=== PATIENT | female | born 1955 | race Caucasian/White ===

== ENCOUNTER 2024-07-05 07:46 | Inpatient (IN) ==
--- NOTE | 2024-05-27 15:31 | PAT Medication Instructions ---
Medication Instructions Date of Service May 27, 2024 Home Medications albuterol 90 mcg/actuation aerosol inhaler 90 mcg inhalation DAILY PRN beclomethasone dipropionate 40 mcg/actuation aerosol inhaler 40 mcg inhalation DAILY calcium 600 mg capsule 600 mg PO DAILY cholecalciferol (vitamin D3) 50 mcg (2,000 unit) capsule (Vitamin D3) 100 mcg PO DAILY diphenhydramine 25 mg-acetaminophen 500 mg tablet (Tylenol PM Extra Strength) 1 tab PO HS fluticasone propionate 50 mcg/actuation nasal spray,suspension (Flonase Allergy Relief) 1 spray intranasal DAILY levocetirizine 5 mg tablet (Xyzal) 5 mg PO QAM montelukast 10 mg tablet 10 mg PO QAM wzsxspuf-yyk-gjhm-FA-Ca carb-vit K 18 mg iron-400 mcg-500 mg tablet 1 tab PO DAILY naproxen 500 mg tablet (Naprosyn) 500 mg PO BID omeprazole 20 mg capsule,delayed release 20 mg PO BID quetiapine 50 mg tablet (Seroquel) 50 mg PO HS rosuvastatin 10 mg tablet 10 mg PO QAM semaglutide 1 mg/dose (4 mg/3 mL) subcutaneous pen injector (Ozempic) 1 mg subcut WK valsartan 160 mg-hydrochlorothiazide 25 mg tablet 1 tab PO QAM vitamins A,C,W-powh-figntg 2,148 mcg-113 mg-45 mg-17.4 mg tablet (PreserVision AREDS) 1 tab PO DAILY STOP 7 days before surgery semaglutide 1 mg/dose (4 mg/3 mL) subcutaneous pen injector (Ozempic) 1 mg subcut WK Continue as directed albuterol 90 mcg/actuation aerosol inhaler 90 mcg inhalation DAILY PRN(use if needed; please bring with you to hospital day of surgery if possible) beclomethasone dipropionate 40 mcg/actuation aerosol inhaler 40 mcg inhalation DAILY fluticasone propionate 50 mcg/actuation nasal spray,suspension (Flonase Allergy Relief) 1 spray intranasal DAILY ASK your surgeon for instructions naproxen 500 mg tablet (Naprosyn) 500 mg PO BID STOP taking 2 weeks before surgery (or as soon as possible if surgery is within 2 weeks) kqleubak-mdx-icwg-FA-Ca carb-vit K 18 mg iron-400 mcg-500 mg tablet 1 tab PO DAILY vitamins A,C,D-fedt-kxnoxp 2,148 mcg-113 mg-45 mg-17.4 mg tablet (PreserVision AREDS) 1 tab PO DAILY DO NOT take the morning of surgery calcium 600 mg capsule 600 mg PO DAILY cholecalciferol (vitamin D3) 50 mcg (2,000 unit) capsule (Vitamin D3) 100 mcg PO DAILY levocetirizine 5 mg tablet (Xyzal) 5 mg PO QAM valsartan 160 mg-hydrochlorothiazide 25 mg tablet 1 tab PO QAM Take morning of surgery With a small sip of water, OTHERWISE NOTHING TO EAT OR DRINK AFTER MIDNIGHT: montelukast 10 mg tablet 10 mg PO QAM omeprazole 20 mg capsule,delayed release 20 mg PO BID rosuvastatin 10 mg tablet 10 mg PO QAM Take evening before surgery diphenhydramine 25 mg-acetaminophen 500 mg tablet (Tylenol PM Extra Strength) 1 tab PO HS omeprazole 20 mg capsule,delayed release 20 mg PO BID quetiapine 50 mg tablet (Seroquel) 50 mg PO HS Other Notes If you have any questions please call us at [phone] or [phone] or [phone] or [phone]
--- NOTE | 2024-06-10 10:37 | Anesthesiology Consultation ---
Date of Service June 10, 2024 Assessment & Plan (1) Encounter for pre-operative examination: Plan - check BSG am DOS. - awaiting surgeon ordered medical clearance, Dr. Gretchen Heath 06/14/24. Optimization form to be faxed to PCP regarding cough as patient states was also present at time of her hysterectomy and was told "coughed multiple times under anesthesia, but no complications happened." - semaglutide instructions: Patient informed at PAT visit to stop 7 days prior to surgery- voiced understanding. Patient advised to check with prescriber to see if alternative diabetic management changes recommended while holding semaglutide- if so, patient to call back to [facility] to update chart and discuss if any further preop medication instructions needed. Chart Review Chart Review: Pending: Refer to Additional Notes / Consult section and Patient seen in Pre Admission Testing Teaching & Discussion Pre-Anesthesia Teaching/Discussion Notes: Instructed NPO after midnight before surgery, except medications with 15 cc of water. Medication instructions provided according to the [facility] guidelines. History Surgery Operation Date: 07/05/24 09:35 Proposed Procedures p L1-L4 Decompression and Fusion, Possible L4-L5, with Spinal Cord Monitoring - Nasim Elizabeth, Height/Weight Height: 5 ft 3 in Weight: 118.5 kg Allergies Allergy/AdvReac Type Severity Reaction Status Date / Time lisinopril AdvReac Intermediate Cough Verified 05/27/24 09:11 Medications Home Medications Medication Instructions Recorded Confirmed Last Taken albuterol 90 mcg/actuation aerosol 90 mcg inhalation DAILY PRN 05/27/24 05/27/24 Unknown inhaler Shortness of Breath - Wheezing beclomethasone dipropionate 40 40 mcg inhalation DAILY 05/27/24 05/27/24 Unknown mcg/actuation aerosol inhaler calcium 600 mg capsule 600 mg PO DAILY 05/27/24 05/27/24 Unknown cholecalciferol (vitamin D3) 50 100 mcg PO DAILY 05/27/24 05/27/24 Unknown mcg (2,000 unit) capsule (Vitamin D3) diphenhydramine 25 1 tab PO HS 05/27/24 05/27/24 Unknown mg-acetaminophen 500 mg tablet (Tylenol PM Extra Strength) fluticasone propionate 50 1 spray intranasal DAILY 05/27/24 05/27/24 Unknown mcg/actuation nasal spray,suspension (Flonase Allergy Relief) levocetirizine 5 mg tablet (Xyzal) 5 mg PO QAM 05/27/24 05/27/24 Unknown montelukast 10 mg tablet 10 mg PO QAM 05/27/24 05/27/24 Unknown gzxmcvqj-ysk-zcou-FA-Ca carb-vit K 1 tab PO DAILY 05/27/24 05/27/24 Unknown 18 mg iron-400 mcg-500 mg tablet naproxen 500 mg tablet (Naprosyn) 500 mg PO BID 05/27/24 05/27/24 Unknown omeprazole 20 mg capsule,delayed 20 mg PO BID 05/27/24 05/27/24 Unknown release quetiapine 50 mg tablet (Seroquel) 50 mg PO HS 05/27/24 05/27/24 Unknown rosuvastatin 10 mg tablet 10 mg PO QAM 05/27/24 05/27/24 Unknown semaglutide 1 mg/dose (4 mg/3 mL) 1 mg subcut WK 05/27/24 05/27/24 Unknown subcutaneous pen injector (Ozempic) valsartan 160 1 tab PO QAM 05/27/24 05/27/24 Unknown mg-hydrochlorothiazide 25 mg tablet vitamins A,C,F-tpzf-poymaj 2,148 1 tab PO DAILY 05/27/24 05/27/24 Unknown mcg-113 mg-45 mg-17.4 mg tablet (PreserVision AREDS) Past Medical History Medical History (Updated 06/10/24 @ 11:01 by Jazmyn Tom PA-C) Asthma controlled, stable per pt; last albuterol inhaler use last month Chronic cough "Every year between March-August I get a dry cough." pt denies any other symptoms Degenerative disc disease, lumbar Heart burn controlled, stable per pt History of adverse reaction to anesthesia "with my hysterectomy my nose got really itchy." denies rash or swelling Hypertension controlled, stable per pt Numbness and tingling of both lower extremities Prediabetes Sleep apnea CPAP-compliant Spinal stenosis Patient denies h/o stroke, seizures, heart attack, heart failure, blood clots/DVTs or blood transfusions. Exercise / Class Metabolic Activity II 4-5 Yardwork/Stairs/Walk up hill (occasional shortness of breath with one flight of stairs-attributed to correlation with increased back pain/asthma ongoing x 1 year per patient-denies change or worsening; denies chest discomfort) Past Surgical History Surgical History History of tonsillectomy and adenoidectomy Hx of appendectomy Hx of colonoscopy Hx of hysterectomy Hx of wisdom tooth extraction Past Anesthesia History No Family Hx of Anesthesia Complications History of PONV No Hx of PONV and No Hx of Motion Sickness Social History Smoking Status: Never smoker Do You Dip or Chew Tobacco: No Hx Alcohol Use: No Hx Substance Use: No substance use type: does not use Review of Systems Patient denies chest pain, reflux, fever, chills, wheezing, or palpitations. Physical Exam Vital Signs Vitals BP 131/82 P 70 TEMP 97.8 SP02 95% on RA RESP 18 Physical Patient resting comfortably in chair in no acute distress, alert and oriented, responding appropriately throughout visit Full cervical extension range of motion without pain TMD <3 finger breadths Mallampati Score 3 Dentition: several crowns, denies chipped or loose teeth, caps, implants or bridges Lungs: normal respiratory effort. Good air movement, clear throughout to auscultation, no adventitious breath sounds Cardiac: regular rate and rhythm, no murmurs noted Carotid arteries: negative bruit bilat Lab Results Anesthesia Preop Results Results Anesthesia Widget: WBC 7.87 K/ul (4.8-10.8) 06/10/24 Hgb 11.8 g/dl (12.0-16.0) L 06/10/24 Hct 36.2 % (37.0-47.0) L 06/10/24 Plt 181 K/uL (130-400) 06/10/24 Na 143 mmol/L (136-145) 06/10/24 K 4.7 mmol/L (3.5-5.1) 06/10/24 Cl 108 mmol/L (98-107) H 06/10/24 CO2 29 mmol/L (21-32) 06/10/24 BUN 29 mg/dl (6-23) H 06/10/24 Creat 1.07 mg/dl (0.6-1.2) 06/10/24 Glucose Level 138 mg/dl (70-99(Fasting)) H 06/10/24 PT 10.6 Seconds (9.0-12.0) 06/10/24 PTT 26 Seconds (21-31) 06/10/24 INR 1.0 (0.9-1.1) 06/10/24 HA1c 6.4 % (4.5-5.6) H 06/10/24 Urine Color Yellow 06/10/24 Urine Appearance Clear (Clear) 06/10/24 Urine pH 5.5 (4.5-7.5) 06/10/24 Urine Specific [place] 1.008 (1.000-1.030) 06/10/24 Urine Protein Negative (Negative) 06/10/24 Urine Glucose (UA) Negative (Negative) 06/10/24 Urine Ketones Negative (Negative) 06/10/24 Urine Blood Negative (Negative) 06/10/24 Urine Nitrite Negative (Negative) 06/10/24 Urine Bilirubin Negative (Negative) 06/10/24 Urine Urobilinogen Negative (Negative) 06/10/24 Urine Leukocyte Esterase Trace (Negative) H 06/10/24 Urine WBC (Auto) 0-5 /hpf (0-5) 06/10/24 Urine RBC (Auto) 0-2 /hpf (0-2) 06/10/24 Urine Hyaline Casts (Auto) 0-2 /lpf (0-2) 06/10/24 Urine Epithelial Cells (Auto) 0-2 /hpf (0-2) 06/10/24 Urine Bacteria (Auto) None Seen (None Seen) 06/10/24 Blood Type A Positive 06/10/24 Antibody Screen NEGATIVE 06/10/24 Testing Electrocardiogram Date: 04/15/24 Sinus rhythm, rate 65 bpm Chest X-Ray Date: 06/10/24 No acute chest disease.
[2024-07-05] MEDS: CeleBREX 200 MG CAP PO SCH (08:48)
[2024-07-05] MEDS: LR 60ML/HR IV SCH (08:48)
[2024-07-05] MEDS: LR 15ML/HR IV SCH (08:48)
[2024-07-05] MEDS: GABAPENTIN 300 MG CAP PO SCH (08:48)
[2024-07-05] MEDS: ACETAMINOPHEN 500 MG TAB PO SCH (08:48)
--- NOTE | 2024-07-05 09:26 | History & Physical Bridge Note ---
Date of Service July 05, 2024 History & Physical Bridge Note I have examined the patient, reviewed the History & Physical and in the interval since the performance of the History & Physical I have noted the following changes of clinical significance: no changes noted
[2024-07-05] MEDS ORDERED: ONDANSETRON INJ 2 MG/ML 2 ML VIAL IV PRN (09:27)
[2024-07-05] MEDS ORDERED: ATROPINE SULFATE 0.1 MG/ML 10ML SYR IV PRN (09:27)
[2024-07-05] MEDS ORDERED: PROMETHAZINE HCL 6.25 MG in SODIUM CHLORIDE 0.9% 50 ML IV PRN (09:27)
[2024-07-05] MEDS ORDERED: HYDROmorphone INJ 1 MG/ML SYRINGE IV PRN (09:27)
--- NOTE | 2024-07-05 09:28 | History & Physical Report ---
Date of Service July 05, 2024 Assessment & Plan (1) Lumbosacral spondylosis with radiculopathy: Plan: L1-L4 decompression and fusion, possible L4-L5. History of Present Illness Chief Complaint: Back and leg pain Primary Care Provider: Gretchen Heath DO This is a 68-year-old female who presents with chronic persistent back and bilateral leg pain and failing course of nonoperative care is here for surgical invention. Allergies Allergy/AdvReac Type Severity Reaction Status Date / Time lisinopril AdvReac Intermediate Cough Verified 07/05/24 08:25 Home Medications Medication Instructions Recorded Confirmed Type albuterol 90 mcg/actuation aerosol 90 mcg inhalation DAILY PRN 05/27/24 07/05/24 History inhaler Shortness of Breath - Wheezing beclomethasone dipropionate 40 40 mcg inhalation DAILY 05/27/24 07/05/24 History mcg/actuation aerosol inhaler calcium 600 mg capsule 600 mg PO DAILY 05/27/24 07/05/24 History cholecalciferol (vitamin D3) 50 100 mcg PO DAILY 05/27/24 07/05/24 History mcg (2,000 unit) capsule (Vitamin D3) diphenhydramine 25 1 tab PO HS 05/27/24 07/05/24 History mg-acetaminophen 500 mg tablet (Tylenol PM Extra Strength) fluticasone propionate 50 1 spray intranasal DAILY 05/27/24 07/05/24 History mcg/actuation nasal spray,suspension (Flonase Allergy Relief) levocetirizine 5 mg tablet (Xyzal) 5 mg PO QAM 05/27/24 07/05/24 History montelukast 10 mg tablet 10 mg PO QAM 05/27/24 07/05/24 History elotnrxy-mqt-mswj-FA-Ca carb-vit K 1 tab PO DAILY 05/27/24 07/05/24 History 18 mg iron-400 mcg-500 mg tablet naproxen 500 mg tablet (Naprosyn) 500 mg PO BID 05/27/24 07/05/24 History omeprazole 20 mg capsule,delayed 20 mg PO BID 05/27/24 07/05/24 History release quetiapine 50 mg tablet (Seroquel) 50 mg PO HS 05/27/24 07/05/24 History rosuvastatin 10 mg tablet 10 mg PO QAM 05/27/24 07/05/24 History semaglutide 1 mg/dose (4 mg/3 mL) 1 mg subcut WK 05/27/24 07/05/24 History subcutaneous pen injector (Ozempic) valsartan 160 1 tab PO QAM 05/27/24 07/05/24 History mg-hydrochlorothiazide 25 mg tablet vitamins A,C,L-pzol-zexbsd 2,148 1 tab PO DAILY 05/27/24 07/05/24 History mcg-113 mg-45 mg-17.4 mg tablet (PreserVision AREDS) Past Med/Surg History Problem List (Updated 07/05/24 @ 09:27 by Nasim Elizabeth DO) Lumbosacral spondylosis with radiculopathy Medical History (Updated 07/05/24 @ 09:27 by Nasim Elizabeth DO) History of adverse reaction to anesthesia "with my hysterectomy my nose got really itchy." denies rash or swelling Numbness and tingling of both lower extremities Degenerative disc disease, lumbar Spinal stenosis Heart burn controlled, stable per pt Prediabetes Hypertension controlled, stable per pt Chronic cough "Every year between March-August I get a dry cough." pt denies any other symptoms Sleep apnea CPAP-compliant Asthma controlled, stable per pt; last albuterol inhaler use last month Surgical History Hx of wisdom tooth extraction History of tonsillectomy and adenoidectomy Hx of hysterectomy Hx of appendectomy Hx of colonoscopy Social History Smoking Status: Never smoker Second Hand Exposure: No; Do You Dip or Chew Tobacco: No; Tobacco Cessation Education Requested by Patient: No Hx Alcohol Use: No Hx Substance Use: No Preferred Language: Azeri Communication Ability: Effective Lpn Per Diem Required: No Beliefs That Will Affect Care: None Current Living Situation: Spouse Other Information That Helps Us Care for You: No Feels Safe at Home: Yes Safety Concerns: Feels Safe At This Time Assistive Devices: CPAP, Glasses and Other Assistive Devices Comment: x2 crowns Physical Exam Physical Exam: Patient is alert and oriented Heart regular rhythm lungs clear Results & Data Results & Data Vital Signs (Past 12 Hours) Vital Signs Temp Pulse Resp BP Pulse Ox O2 Del Method 07/05/24 08:34 36.7 C 95 H 20 130/88 92 Room Air
[2024-07-05] MEDS ORDERED: MIDAZOLAM HCL 1 MG/ML 2ML VIAL ONE (09:39)
[2024-07-05] MEDS ORDERED: fentaNYL citrate PF 100 MCG/2 ML VIAL ONE (09:39)
[2024-07-05] MEDS ORDERED: HYDROmorphone INJ 2 MG/ML SYR/VIAL ONE (09:40)
[2024-07-05] MEDS: ceFAZolin 2000MG 2,000 MG/15 ML SYR IV SCH ×2 (09:50→18:35)
[2024-07-05] MEDS ORDERED: DEXAMETHASONE SOD INJ 4 MG/ML VIAL ONE (10:08)
[2024-07-05] MEDS ORDERED: ONDANSETRON INJ 2 MG/ML 2 ML VIAL ONE (10:08)
[2024-07-05] MEDS: BUPIVACAINE/EPINEPHRINE 0.25% 1:200,000 30 ML VIAL ONE (10:41)
[2024-07-05] MEDS: ceFAZolin 330 MG/ML 1 GM VIAL ONE (10:41)
[2024-07-05] MEDS ORDERED: LIDOCAINE 2% 2 ML VIAL/AMP(20MG/ML) INFIL ONE (11:34)
[2024-07-05] MEDS ORDERED: ROCURONIUM BROMIDE 10 MG/ML 5 ML VIAL IV ONE (11:34)
[2024-07-05] MEDS ORDERED: PROPOFOL IV EMULSION 10 MG/ML 20 ML VIAL IV ONE (11:34)
[2024-07-05] MEDS ORDERED: ALBUMIN HUMAN 5% 12.5 GM/250 ML VIAL IV ONE (12:09)
[2024-07-05] MEDS ORDERED: GLYCOPYRROLATE 0.2 MG/ML VIAL ONE (12:28)
[2024-07-05] MEDS: FLOSEAL HEMOSTATIC MATRIX 10ML TOP ONE (12:28)
[2024-07-05] MEDS ORDERED: KETAMINE HCL 10MG/ML SYR ONE (12:28)
[2024-07-05 12:30] LABS: Hematocrit (blood only) 29.8 % (37.0-47.0); Hemoglobin 10.1 g/dl (12.0-16.0)
[2024-07-05] MEDS ORDERED: SUGAMMADEX SODIUM 200 MG/2 ML VIAL IV ONE (12:33)
--- NOTE | 2024-07-05 12:49 | Operative Report ---
Post Operative Report Pre & Post Diagnosis Operation Date: 07/05/24 09:35 Pre-Op Diagnosis: #1 lumbosacral spondylosis with radiculopathy #2 lumbar spinal stenosis with neurogenic claudication #3 lumbar degenerative scoliosis #4 morbid obesity Post-Op Diagnosis: Same I identified the patient and participated in the time-out.: Yes Procedure Operation Date: 07/05/24 09:35 Actual Procedures #1 lumbar decompression with bilateral medial facetectomies and foraminotomies L1-L2, L2-L3, L3-L4 and L4-5 per #2 posterior spinal fusion L1-L5. #3 placement posterior segmental instrumentation L1-L5. #4 interbody fusion L2-L3, L3-L4 and L4-5. #5 placement Spira 10 x 26 mm at L2-L3, 11 x 26 mm at L3-L4 and 9 x 26 mm x 2 at L4-5. #6 placement locally harvested morselized autograft and posterior gutters. #7 placement of infuse collagen sponge combined with Koros in the posterior lateral gutters and os design bone graft interbody spaces. #8 application of versa wrap over the exposed dura. Surgeon Nasim Elizabeth, DO Engineering Manager Francia Kingston Estimated Blood Loss 950 Findings See Below The patient is 5 foot 3 weighing over 114 kg with a BMI in excess of 44. The patient's body habitus did contribute to significant technical difficulty with positioning exposure and the procedure itself. This had at least 50% increased operative time. I am recommending a modifier 22. Specimens None Indications This is a 68-year-old female presents above-mentioned diagnosis after failing since course of nonoperative care is here for surgical invention. Description of Procedure Patient was met with identified informed sent obtained. Patient was then taken to the operative suite underwent intubation placed in a prone position on the Jakob table atop the Matthew frame. All bony promises well-padded eyes inspected to ensure no external pressure placed upon the. This point the lumbar spine was prepped and draped in a sterile fashion. Sharp dissection with the assistance of Bovie cautery performed down to and exposing the lamina and transverse processes of L1-L2 L3-L4-L5 bilaterally. From caudal to cephalad fashion complete laminectomy of L4 was performed including bilateral male facetectomies and foraminotomies addressing severe spinal stenosis. Complete laminectomy of L3 was performed with bilateral medial facetectomies and foraminotomies addressing severe spinal stenosis. Last I then performed a complete laminectomy of L2 with bilateral medial facetectomies and foraminotomies and lastly laminectomy of L1 with bilateral medial facetectomies and foraminotomies addressing severe spinal stenosis. Pedicle screws then placed in L 1 through L5 bilaterally with assistance of fluoroscopy process sushma placed by way of transforaminal approach on the right a discectomy of L4-5 was performed endplates guided to subcortical bleeding bone and a 9 x 26 mm Spira cage filled with through the transforaminal approach and a second os design bone graft apposition. Then proceeded to the left transforaminal region at L4-5. Discectomy performed 9 x 26 mm Spira cage filled with os designed tapped into position. I then proceeded to L3-L4 by way of transforaminal approach on the left a complete discectomy was performed endplates guided to subcortical white bone and a 12 x 26 mm Spira cage filled with os designed tapped in position. Then proceeded L2-L3 and by way of transforaminal approach a complete discectomy performed endplates guided to subcortical the bone and 11 x 26 mm Spira cage filled with os design tapped in position. The rods were then locked in 5 position bilaterally but the transverse processes of L1-L2-L3 L4-5 burred to subcortical bleeding bone. Infuse collagen sponge combined with Koros and local autograft placed in the posterior lateral gutters. Versa wrap placed over the exposed dura. 15 round CARLOS drain inserted. The incision was then closed with 1 Vicryl fascia 2-0 Vicryl subcutaneously and 4 Monocryl for final skin closure. Steri-Strips sterile dressing placed. Patient waken taken to PACU stable condition. Please note spinal cord monitoring was utilized at the procedure no changes noted. Francia Kingston was present at the entire surgery involved patient positioning complex portion of the surgery and Final skin closure. I attest to the content of the Intraoperative Record and any orders documented therein. Any exceptions are noted below.
--- NOTE | 2024-07-05 12:58 | Fluoroscopy Report ---
FL lumbar spine 2-3V CLINICAL HISTORY: L1-L4 DECOMPRESSION AND FUSION POSSIBLE L4-L5 COMPARISON STUDY: None. FLUOROSCOPY TIME: 30 seconds. Ka,r: 29.13 mGy FLUOROSCOPIC IMAGES: 4 FINDINGS: Fluoroscopy was provided during posterior decompression with L2-L3, L3-L4 and L4-L5 discect ze with interbody spacer placement. Bilateral pedicle screws at the L1-L5 levels are present with in terconnecting rods. IMPRESSION: Fluoroscopy provided during L1-L5 decompression and fusion. ACT 112: Negative or not required by law. Electronically signed by: Osmel Miranda M.D. 07/05/2024 12:56 PM
--- NOTE | 2024-07-05 13:41 | Anesthesiology Progress Note ---
Date of Service July 05, 2024 Anesthesia Post Procedure Vital Signs Vital Signs: Temp Pulse Pulse Resp BP Pulse Ox O2 Del Method 07/05/24 13:30 83 17 118/77 97 Room Air 07/05/24 13:20 81 12 122/96 94 Room Air 07/05/24 13:10 85 18 119/74 100 Oxymask 07/05/24 13:00 91 H 20 125/95 100 Oxymask 07/05/24 12:59 36.2 C L 88 16 118/89 100 Oxymask 07/05/24 08:34 36.7 C 95 H 20 130/88 92 Room Air O2 Flow Rate 07/05/24 13:30 07/05/24 13:20 07/05/24 13:10 4 07/05/24 13:00 6 07/05/24 12:59 6 07/05/24 08:34 Transfer of Care Handoff Completed per policy Notes Mental Status: alert / awake / arousable Patient Amnestic to Procedure: Yes Nausea / Vomiting: adequately controlled Pain: adequately controlled Airway Patency, RR, SpO2: stable & adequate BP & HR: stable & adequate Hydration State: stable & adequate Anesthetic Complications: no major complications apparent
[2024-07-05] MEDS ORDERED: LORazepam 2 MG/1 ML VIAL IV PRN (14:25)
[2024-07-05] MEDS ORDERED: ACETAMINOPHEN 500 MG TAB PO PRN (14:25)
[2024-07-05] MEDS ORDERED: LORazepam 0.5 MG TAB PO PRN (14:25)
[2024-07-05] MEDS ORDERED: hydrOXYzine HCl 25 MG TAB PO PRN (14:25)
[2024-07-05] MEDS ORDERED: SOD PHOSPHATE/SOD BIPHOSPHATE ENEMA 132 ML BTL PR PRN (14:25)
[2024-07-05] MEDS ORDERED: ALUMINUM/MAGNESIUM SUSP 30 ML UDC PO PRN (14:25)
[2024-07-05] MEDS ORDERED: bisacodyL 10 MG SUPP PR PRN (14:25)
[2024-07-05] MEDS ORDERED: METOCLOPRAMIDE HCL INJ 5 MG/ML 2 ML VIAL IV PRN (14:25)
[2024-07-05] MEDS ORDERED: MAGNESIUM HYDROXIDE SUSP 30 ML UDC PO PRN (14:25)
[2024-07-05] MEDS ORDERED: FAMOTIDINE 20 MG TAB PO PRN (14:25)
[2024-07-05] MEDS ORDERED: PROMETHAZINE 12.5 MG/50.5 ML BAG IV PRN (14:25)
[2024-07-05] MEDS ORDERED: DO NOT ADMINISTER FLU VACCINE PRN (14:25)
[2024-07-05] MEDS ORDERED: NALOXONE HCL 0.4 MG/1 ML VIAL/CARP IV PRN (14:25)
[2024-07-05] MEDS ORDERED: ONDANSETRON 4 MG OD TAB PO PRN (14:25)
[2024-07-05] MEDS ORDERED: DO NOT ADMINISTER PNEUMOCOCCAL VACCINE PRN (14:25)
[2024-07-05] MEDS ORDERED: ACETAMINOPHEN 1,000 MG/100 ML VIAL IV PRN (14:25)
[2024-07-05] MEDS ORDERED: diphenhydrAMINE Capsule 25 MG CAP PO PRN (14:25)
[2024-07-05] MEDS: HYDROmorphone INJ 1 MG/ML SYRINGE IV PRN (14:40)
[2024-07-05] MEDS ORDERED: ALBUTEROL HFA 8 GM INHALER INH PRN (14:44)
--- NOTE | 2024-07-05 14:44 | Hospitalist Consultation ---
Date of Consultation July 05, 2024 Assessment & Plan (1) Status post lumbar spine surgery for decompression of spinal cord: (2) Spinal stenosis: (3) Sleep apnea: (4) Hypertension: Plan Jillian is a pleasant 68-year-old female with PMH of diabetes mellitus, BMI 40+, vitamin D deficiency, arthritis, HTN, HLD, GERD, AMARJIT, asthma, and allergic rhinitis. She presented on 07/05 for an L1-L5 decompression and fusion of the spinal cord with Dr. Elizabeth. #S/p lumbar spine surgery Perioperative antibiotics, pain control, fluids, and DVT PPx per the primary team EBL listed as 950cc, per operative note Hgb postop was 10.1 Agree with a.m. CBC; we will continue to follow #Diabetes mellitus Last A1c at 6.5% on 06/10/2024 Not currently on DM medications Will defer Lantus at this time Advance from clear liquid diet to T2DM diet Added on hypoglycemia medications Added on BSG ACHS Adjust regimen as needed #AMARJIT Patient may use home CPAP RT to follow in the event that she requires help with set up #Insomnia Continue Seroquel HS #Hypertension Hold a.m. valsartan + HCTZ for now Okay to be given pending a.m. BP Agree with current medical management: Disposition: MedSurg Clear liquid diet for now VTE PPx: SCD/teds Thank you for allowing us to precipitate in the care of this patient, please reach out with any questions or concerns; we will continue to follow. History of Present Illness Reason for Consultation: Medical management Requesting Physician: Nasim Elizabeth DO Attending Physician: Nasim Elizabeth DO History of Present Illness Jillian is a pleasant 68-year-old female with PMH of diabetes mellitus, BMI 40+, vitamin D deficiency, arthritis, HTN, HLD, GERD, AMARJIT, asthma, and allergic rhinitis. She presented on 07/05 for an L1-L5 decompression and fusion of the spinal cord with Dr. Elizabeth. Per review of operative note, patient's body habitus did contribute to significant technical difficulty, which increased operative time; EBL was listed as 950 cc. Per review of patient's vitals postop, patient's vitals have been stable; one episode of mild hypertensive at 147/79, otherwise normotensive. Patient rates her pain in her lower back as a 1/10 (specifically at the incision site). No radiation down the legs. Her (Hank) is at bedside, and reports she has not been this back pain-free in over 8 years. Patient has been drinking water since the surgery without difficulty; has not tried anything to eat yet. She does use a CPAP at night, and brought her in her own CPAP, but requests help setting up for humidified air. She does not use up on oxygen at night. She formally took Ozempic for history of prediabetes, but reports she has not been on any DM medications in the past couple months. She reports that she only took the medications she was "supposed to take" this morning, which included omeprazole. She takes Seroquel at night to help her sleep, along with Tylenol PM. Patient reports no new complaints at time of consult. ROS: Patient denies chronic cough, and mild lower back pain. Patient denies fever, chills, sweating, dizziness, lightheadedness, headache, sore throat, chest pain, chest palpitations, pleuritic CP, SOB, abdominal pain, N/V/D, changes in urinary or bowel habits, saddle anesthesia, or numbness or tingling going down the legs. Allergies Allergy/AdvReac Type Severity Reaction Status Date / Time lisinopril AdvReac Intermediate Cough Verified 07/05/24 08:25 Home Medications Medication Instructions Recorded Confirmed Type albuterol 90 mcg/actuation aerosol 90 mcg inhalation DAILY PRN 05/27/24 07/05/24 History inhaler Shortness of Breath - Wheezing beclomethasone dipropionate 40 40 mcg inhalation DAILY 05/27/24 07/05/24 History mcg/actuation aerosol inhaler calcium 600 mg capsule 600 mg PO DAILY 05/27/24 07/05/24 History cholecalciferol (vitamin D3) 50 100 mcg PO DAILY 05/27/24 07/05/24 History mcg (2,000 unit) capsule (Vitamin D3) diphenhydramine 25 1 tab PO HS 05/27/24 07/05/24 History mg-acetaminophen 500 mg tablet (Tylenol PM Extra Strength) fluticasone propionate 50 1 spray intranasal DAILY 05/27/24 07/05/24 History mcg/actuation nasal spray,suspension (Flonase Allergy Relief) levocetirizine 5 mg tablet (Xyzal) 5 mg PO QAM 05/27/24 07/05/24 History montelukast 10 mg tablet 10 mg PO QAM 05/27/24 07/05/24 History jwqehtho-tvf-tsbf-FA-Ca carb-vit K 1 tab PO DAILY 05/27/24 07/05/24 History 18 mg iron-400 mcg-500 mg tablet naproxen 500 mg tablet (Naprosyn) 500 mg PO BID 05/27/24 07/05/24 History omeprazole 20 mg capsule,delayed 20 mg PO BID 05/27/24 07/05/24 History release quetiapine 50 mg tablet (Seroquel) 50 mg PO HS 05/27/24 07/05/24 History rosuvastatin 10 mg tablet 10 mg PO QAM 05/27/24 07/05/24 History semaglutide 1 mg/dose (4 mg/3 mL) 1 mg subcut WK 05/27/24 07/05/24 History subcutaneous pen injector (Ozempic) valsartan 160 1 tab PO QAM 05/27/24 07/05/24 History mg-hydrochlorothiazide 25 mg tablet vitamins A,C,S-ltuf-kbopte 2,148 1 tab PO DAILY 05/27/24 07/05/24 History mcg-113 mg-45 mg-17.4 mg tablet (PreserVision AREDS) oxycodone 5 mg tablet 5 mg PO Q6H PRN pain #30 tabs 07/05/24 Rx tramadol 50 mg tablet 50 mg PO Q6H PRN pain, moderate 07/05/24 Rx #30 tabs Patient History Medical History (Updated 07/05/24 @ 14:51 by Garrison Byrnes PA-C) History of adverse reaction to anesthesia "with my hysterectomy my nose got really itchy." denies rash or swelling Numbness and tingling of both lower extremities Degenerative disc disease, lumbar Heart burn controlled, stable per pt Prediabetes Chronic cough "Every year between March-August I get a dry cough." pt denies any other symptoms Asthma controlled, stable per pt; last albuterol inhaler use last month Surgical History (Updated 07/05/24 @ 14:51 by Garrison Byrnes PA-C) Hx of wisdom tooth extraction History of tonsillectomy and adenoidectomy Hx of hysterectomy Hx of appendectomy Hx of colonoscopy Social History Smoking Status: Never smoker Second Hand Exposure: No; Do You Dip or Chew Tobacco: No; Tobacco Cessation Education Requested by Patient: No Hx Alcohol Use: No Hx Substance Use: No Preferred Language: Urdu Communication Ability: Effective Magnesium Mill Operator Required: No Beliefs That Will Affect Care: None Current Living Situation: Spouse Other Information That Helps Us Care for You: No Feels Safe at Home: Yes Safety Concerns: Feels Safe At This Time Assistive Devices: CPAP, Glasses and Other Assistive Devices Comment: x2 crowns Review of Systems Review of Systems: See HPI above Physical Exam Physical Exam: General: no acute distress; tired; pleasant affect; at bedside; non- toxic appearing; cooperative; SpO2 95% on RA HEENT: normocephalic, atraumatic; no scleral icterus; PERRLA; vision and hearing grossly intact Neck: supple; no lymphadenopathy; trachea midline Skin: warm, dry without signs of tenting; no cyanosis; no rashes, bruising, lesions, or erythema noted CV: chest wall NTP; RRR; S1/S2 normal; no murmurs/rubs/gallops; pulses intact and symmetric at radial, DP, and PT Lungs: no acute respiratory distress; symmetrical chest wall expansion; clear breath sounds across all lung linton w/o adventitious sounds; no wheezing ABD: Soft, NTP; BS present; no rebound/guarding; no distention Back: Surgical site dressing is without signs of drainage, erythema, or infection MSK: no tics or fasciculations; no edema noted in the LEs b/l, nonerythematous (SCDs and teds in place); patient demonstrates ability to wiggle toes/plantarflex/dorsiflex bilaterally against resistance with 5/5 strength Neuro: A&Ox3; normal mood and affect; fluent speech; no focal deficits; patient reports that sensation is intact and symmetric in lower extremity bilaterally assessed via light touch; DP/PT pulses neurovascularly intact Results & Data Results & Data Vital Signs (Past 12 Hours) Vital Signs Temp Pulse Pulse Resp BP Pulse Ox O2 Del Method 07/05/24 14:25 36.4 C L 85 16 147/79 H 93 Room Air 07/05/24 14:00 79 12 131/76 94 Room Air 07/05/24 13:50 81 14 136/86 95 Room Air 07/05/24 13:40 36.4 C L 75 12 139/73 95 Room Air 07/05/24 13:30 83 17 118/77 97 Room Air 07/05/24 13:20 81 12 122/96 94 Room Air 07/05/24 13:10 85 18 119/74 100 Oxymask 07/05/24 13:00 91 H 20 125/95 100 Oxymask 07/05/24 12:59 36.2 C L 88 16 118/89 100 Oxymask 07/05/24 08:34 36.7 C 95 H 20 130/88 92 Room Air O2 Flow Rate 07/05/24 14:25 07/05/24 14:00 07/05/24 13:50 07/05/24 13:40 07/05/24 13:30 07/05/24 13:20 07/05/24 13:10 4 07/05/24 13:00 6 07/05/24 12:59 6 07/05/24 08:34 Laboratory Results Abnormal lab results 07/05/24 07/05/24 Range/Units 08:35 12:20 Hgb 10.1 L (12.0-16.0) g/dl Hct 29.8 L (37.0-47.0) % POC Glucose 169 H (70-99) mg/dl Diagnostic Findings Lumbar Spine X-Ray 07/05/24 09:35 FL lumbar spine 2-3V CLINICAL HISTORY: L1-L4 DECOMPRESSION AND FUSION POSSIBLE L4-L5 COMPARISON STUDY: None. FLUOROSCOPY TIME: 30 seconds. Ka,r: 29.13 mGy FLUOROSCOPIC IMAGES: 4 FINDINGS: Fluoroscopy was provided during posterior decompression with L2-L3, L3-L4 and L4-L5 discectomy with interbody spacer placement. Bilateral pedicle screws at the L1-L5 levels are present with interconnecting rods. IMPRESSION: Fluoroscopy provided during L1-L5 decompression and fusion. ACT 112: Negative or not required by law. Electronically signed by: Osmel Miranda M.D. 07/05/2024 12:56 PM PG Care Time/CCT Total # of Minutes Spent Total Time Spent with Patient: Total time spent is greater than 50% in coordination of care (as documented) at patient's floor/unit and/or counseling patient: Coding [place] [address] IN/OBS CONSULT LVL 3,45M Patient Type Established Medical Decision Making Moderate Complexity Diagnoses Status post lumbar spine surgery for decompression of spinal cord Z98.890 Spinal stenosis M48.00 Sleep apnea G47.30 Hypertension I10
[2024-07-05] MEDS ORDERED: GLUCOSE 40% GEL 15 GM TUBE PO PRN (15:31)
[2024-07-05] MEDS ORDERED: DEXTROSE 50% 50 ML SYRINGE IV PRN (15:31)
[2024-07-05] MEDS ORDERED: CARBOHYDRATES FOR HYPOGLYCEMIA PO PRN (15:31)
[2024-07-05] MEDS ORDERED: GLUCOSE 10 TAB/TUBE PO PRN (15:31)
[2024-07-05] MEDS: ONDANSETRON INJ 2 MG/ML 2 ML VIAL IV PRN (18:35)
[2024-07-05] MEDS: DOCUSATE SODIUM/SENNA 50/8.6MG TAB PO SCH (20:10)
[2024-07-05] MEDS: QUEtiapine FUMARATE 25 MG TABLET PO SCH (20:10)
[2024-07-05] MEDS: PANTOprazole 40 MG TAB PO SCH (20:10)
[2024-07-05] MEDS ORDERED: NON-FORMULARY MEDICATION (Diphenhydramine-Acetaminophen [Tylenol Pm Extra Strength] 25-500 PO SCH (21:00)
[2024-07-05] MEDS: oxyCODONE HCL IR 5 MG TAB (IMMEDIATE RELEASE) PO PRN (22:47)
[2024-07-06] MEDS: POLYETHYLENE (MIRALAX) 17 GM PACK PO SCH (05:37)
[2024-07-06 07:18] LABS: Basophils # (auto) 0.01 K/uL (0.00-0.20); Basophils % (auto) 0.1 %; Hematocrit (blood only) 25.4 % (37.0-47.0); Hemoglobin 8.5 g/dl (12.0-16.0); Immature Granulocytes # (auto) 0.07 K/uL (0.01-0.20); Immature Granulocytes % (auto) 0.7 %; Lymphocytes # (auto) 1.12 K/uL (1.20-3.40); Mean Corpuscular Hemoglobin 28.1 pg (25.0-34.0); Mean Corpuscular Hgb Conc 33.5 g/dL (32.0-36.0); Mean Corpuscular Volume 83.8 fL (80.0-100.0); Monocytes % (auto) 5.3 %; Neutrophils # (auto) 7.66 K/uL (1.40-6.50); Neutrophils % (auto) 81.9 %; Platelet Count 129 K/uL (130-400); RDW Coefficient of Variation 14.6 % (11.5-14.5); RDW Standard Deviation 44.7 fL (36.4-46.3); Red Blood Count 3.03 M/uL (4.20-5.40); White Blood Count 9.36 K/ul (4.8-10.8)
[2024-07-06] MEDS: CHOLECALCIFEROL 25 MCG (1000 UNITS) TAB PO SCH (07:38)
[2024-07-06] MEDS: ROSUVASTATIN CALCIUM 10 MG TAB PO SCH (07:38)
[2024-07-06] MEDS: CALCIUM CARBONATE 1250MG TAB PO SCH (07:38)
[2024-07-06] MEDS: CEROVITE ADV FORMULA TAB PO SCH (07:38)
[2024-07-06] MEDS: CETIRIZINE HCL 10 MG TABLET PO SCH (07:38)
[2024-07-06] MEDS: MONTELUKAST SODIUM 10 MG TABLET PO SCH (07:38)
[2024-07-06] MEDS: dexAMETHasone 6 MG in SYRINGE 0 ML IV SCH (07:38)
[2024-07-06] MEDS: FLUTICASONE PROPIONATE NA SPR 16 GM BTL SCH (07:39)
[2024-07-06] MEDS: FLUTICASONE FUROATE 100MCG 14 PUFFS/INHALER INH SCH (07:39)
[2024-07-06 07:44] LABS: BUN Creatinine Ratio 26.6 (10-20); Calcium 8.6 mg/dl (8.6-10.3); Creatinine Clr Calc Pharmacy 61.9 ml/min; Potassium 4.6 mmol/L (3.5-5.1)
--- NOTE | 2024-07-06 08:18 | Hospitalist Progress Note ---
Date of Service July 06, 2024 Assessment & Plan (1) Status post lumbar spine surgery for decompression of spinal cord: (2) Spinal stenosis: (3) Sleep apnea: (4) Hypertension: Plan Jillian is a pleasant 68-year-old female with PMH of diabetes mellitus, BMI 40+, vitamin D deficiency, arthritis, HTN, HLD, GERD, AMAJRIT, asthma, and allergic rhinitis. She presented on 07/05 for an L1-L5 decompression and fusion of the spinal cord with Dr. Elizabeth. #S/p lumbar spine surgery Perioperative antibiotics, pain control, fluids, and DVT PPx per the primary team EBL 950cc - hgb 8.5 - suspect acute blood loss anemia vs dilutional. Recheck AM CBC No leukocytosis #Diabetes mellitus Last A1c at 6.5% on 06/10/2024. No current home medications, previously Monjuaro and metformin at this time. Loose SSI added for elevated BSGs in the setting of steroid use #AMARJIT Patient may use home CPAP #Insomnia Continue Seroquel HS #Hypertension Resume valsartan. Continue to hold HCTZ given lower BPs, suspect resume next 1-2 days Thank you for allowing us to precipitate in the care of this patient, please reach out with any questions or concerns; we will continue to follow. Admission and Anticipated Discharge Date Admission Date: July 05, 2024 Supervising Physician Co-Signing Physician Notes PA Supervision Note: I did not personally see or examine the patient today, but I verified all franks points of ALISSON Hernandez's assessment and plan with the following exceptions/additions: None Subjective Patient seen sitting up in the chair, present at bedside. patient has mild pain in low back but no pain radiating down the legs has ambulated in the halls today. Passing gas no longer on any medications for her diabetes and her sugars normally run 128 Review of Systems Review of Systems: All systems reviewed & are unremarkable except as noted in Subjective Physical Exam Physical Exam: General: NAD, VS as above Resp: normal respiratory effort, lungs clear to auscultation CV: RRR, no murmur, Abd: normal bowel sounds, non tender, soft Bck: dressing c/d/i Extremities: Moves all extremities. Neuro: A&O x3, Results & Data Results & Data Vital Signs (Past 12 Hours) Vital Signs Temp Pulse Resp BP Pulse Ox O2 Del Method 07/06/24 07:25 97.9 F 82 16 108/67 93 CPAP 07/06/24 02:38 97.3 F L 84 16 114/73 94 Room Air 07/05/24 23:08 97.5 F L 86 16 105/70 93 Room Air Laboratory Results CBC and chemistry reviewed PG Care Time/CCT Total # of Minutes Spent Total Time Spent with Patient: Total time spent is greater than 50% in coordination of care (as documented) at patient's floor/unit and/or counseling patient: Coding Level of Care Code 19017 SUB INP/OBS CARE 2/35MIN Diagnoses Status post lumbar spine surgery for decompression of spinal cord Z98.890 Spinal stenosis M48.00 Sleep apnea G47.30 Hypertension I10
[2024-07-06] MEDS: INSULIN ASPART PER UNIT CHARGE SC SCH (08:19)
[2024-07-06] MEDS: VALSARTAN 80 MG TAB PO SCH (08:24)
[2024-07-06] MEDS ORDERED: NON-FORMULARY MEDICATION (Vitamins A,C,E-Zinc-Copper [Preservision Areds] 2,148 mcg-113 mg PO SCH (09:00)
--- NOTE | 2024-07-06 12:06 | Orthopedic Progress Note ---
Date of Service July 06, 2024 Assessment & Plan (1) Lumbosacral spondylosis with radiculopathy: Plan: At this time initiate physical therapy monitor CARLOS operatively discharge home next few days. Admission and Anticipated Discharge Date Admission Date: July 05, 2024 Subjective Patient's back pain is controlled. She denies any leg pain. Physical Exam Physical Exam: Patient is currently bed. Peers comfortable. Discussed when to testing. Results & Data Vital Signs (Past 12 Hours) Vital Signs Temp Pulse Pulse Resp BP BP Pulse Ox 07/06/24 11:32 36.6 C 83 16 109/62 92 07/06/24 10:56 36.7 C 80 15 117/77 92 07/06/24 07:25 07/06/24 07:25 36.6 C 82 16 108/67 93 07/06/24 02:38 36.3 C L 84 16 114/73 94 O2 Del Method 07/06/24 11:32 Room Air 07/06/24 10:56 Room Air 07/06/24 07:25 Room Air 07/06/24 07:25 CPAP 07/06/24 02:38 Room Air Queries Orthopedic Spine Obesity: Yes
[2024-07-06] MEDS: LANTUS PER UNIT CHARGE SQ SCH (20:31)
[2024-07-07 06:47] LABS: Hematocrit (blood only) 25.2 % (37.0-47.0); Hemoglobin 8.6 g/dl (12.0-16.0); Mean Corpuscular Hemoglobin 28.3 pg (25.0-34.0); Mean Corpuscular Hgb Conc 34.1 g/dL (32.0-36.0); Mean Corpuscular Volume 82.9 fL (80.0-100.0); Platelet Count 147 K/uL (130-400); RDW Coefficient of Variation 14.6 % (11.5-14.5); RDW Standard Deviation 44.4 fL (36.4-46.3); Red Blood Count 3.04 M/uL (4.20-5.40); White Blood Count 11.23 K/ul (4.8-10.8)
[2024-07-07] MEDS: traMADol HCL 50 MG TABLET PO PRN (09:08)
--- NOTE | 2024-07-07 10:09 | Orthopedic Progress Note ---
Date of Service July 07, 2024 Assessment & Plan (1) Lumbosacral spondylosis with radiculopathy: Plan: At this time we will continue physical therapy monitor CARLOS output over the discharge home in the next few days. Admission and Anticipated Discharge Date Admission Date: July 05, 2024 Subjective Patient's back pain is controlled. She tolerated physical therapy well yesterday. She struggling with some left trochanteric bursitis. Physical Exam Physical Exam: On exam she is neurologically intact. There is tenderness palpation of the left trochanter and IT band. Results & Data Vital Signs (Past 12 Hours) Vital Signs Temp Pulse Resp BP BP Pulse Ox O2 Del Method 07/07/24 07:57 36.4 C L 94 H 16 108/71 96 Room Air 07/06/24 22:11 36.9 C 81 20 122/74 94 Room Air Queries Orthopedic Spine Acute Posthemorrhagic Anemia: Yes Obesity: Yes
--- NOTE | 2024-07-07 16:03 | Hospitalist Progress Note ---
Date of Service July 07, 2024 Assessment & Plan (1) Status post lumbar spine surgery for decompression of spinal cord: (2) Spinal stenosis: (3) Sleep apnea: (4) Hypertension: Plan Jillian is a pleasant 68-year-old female with PMH of diabetes mellitus, BMI 40+, vitamin D deficiency, arthritis, HTN, HLD, GERD, AMARJIT, asthma, and allergic rhinitis. She presented on 07/05 for an L1-L5 decompression and fusion of the spinal cord with Dr. Elizabeth. #Diabetes mellitus Last A1c at 6.5% on 06/10/2024. No current home medications, previously Monjuaro and metformin at this time. Added lantus 8units HS 07/06. Tightened SSI with presistent elevated BSGs. #S/p lumbar spine surgery Perioperative antibiotics, pain control, fluids, and DVT PPx per the primary team EBL 950cc - hgb 8.5 post-op - suspect acute blood loss anemia vs dilutional. hgb stable today 8.6 Leukocytosis likely reactive from steroids. platelets have recovered. #AMARJIT Patient may use home CPAP #Insomnia Continue Seroquel HS #Hypertension Resume valsartan. Continue to hold HCTZ given lower BPs, suspect resume next 1-2 days Thank you for allowing us to precipitate in the care of this patient, please reach out with any questions or concerns; we will continue to follow. Admission and Anticipated Discharge Date Admission Date: July 05, 2024 Supervising Physician Co-Signing Physician Notes PA Supervision Note: I did not personally see or examine the patient today, but I verified all franks points of ALISSON Hernandez's assessment and plan with the following exceptions/additions: None Subjective sitting up i nthe chair. pain in her hip denies symptoms from elevated BSGs passing gas, no BM Physical Exam Physical Exam: General: NAD, vitals as above, sitting up in the chair. Appears comfortable Pulm: breathing unlabored CV: well perfused extremities: moves all extremities Results & Data Results & Data Vital Signs (Past 12 Hours) Vital Signs Temp Pulse Resp BP Pulse Ox O2 Del Method 07/07/24 15:04 97.7 F 74 16 108/71 92 Room Air 07/07/24 07:57 97.5 F L 94 H 16 108/71 96 Room Air Laboratory Results cbc reviewed pOC BSG rveiewed PG Care Time/CCT Total # of Minutes Spent Total Time Spent with Patient: Total time spent is greater than 50% in coordination of care (as documented) at patient's floor/unit and/or counseling patient: Coding Level of Care Code 94199 SUB INP/OBS CARE 2/35MIN Diagnoses Status post lumbar spine surgery for decompression of spinal cord Z98.890 Spinal stenosis M48.00 Sleep apnea G47.30 Hypertension I10
[2024-07-07] MEDS: HYDROmorphone INJ 0.5 MG/0.5 ML SYR IV PRN (17:54)
[2024-07-08 07:51] VITALS: RESP 16
--- NOTE | 2024-07-08 08:50 | Discharge Summary ---
Date of Service July 08, 2024 Admission HPI Per Admitting Provider This is a 68-year-old female who presents with chronic persistent back and bilateral leg pain and failing course of nonoperative care is here for surgical invention. Principal Diagnosis Lumbar spondylosis with radiculopathy Discharge Data Allergies Allergy/AdvReac Type Severity Reaction Status Date / Time lisinopril AdvReac Intermediate Cough Verified 07/05/24 08:25 Consultations 07/05/24 14:25 Consult Hospitalist Routine Procedures Performed Operation Date: 07/05/24 09:35 Actual Procedures p L1-L5 Decompression and Fusion with Spinal Cord Monitoring - Nasim Elizabeth DO Ordered Studies 07/05/24 09:35 FL lumbar spine 2-3V Routine Hospital Course (1) Lumbosacral spondylosis with radiculopathy: Patient underwent multilevel lumbar depression fusion tolerated this well was taken to orthopedic for postoperative. Postop relief. Dressed with physical therapy. CARLOS drain decreasing. Extra strength testing. Simply discharged home. Discharge orders instructions from the chart for further review. Total Time Total Time Spent Total Time Spent (In Minutes): 20 minutes Discharge Plan Discharge Items Patient Disposition: Home - Self-Care Reason For Visit: POSTOP Discharge Diagnosis: Lumbar spondylosis with radiculopathy Activity: As commented below Non-emergency contact: Primary Care Provider Call non-emergency contact if: you have any medication questions Follow-up/Referrals: PCP,NO [Physician] - Diet: Regular Addtl Attending Provider Instructions: ACTIVITY RECOMMENDATIONS: SELF CARE INSTRUCTIONS AFTER THORACIC/LUMBAR FUSIONS 1. You may walk to your tolerance. It is good exercise for your legs and back. Expect some back and intermittent leg aches and pains. 2. You may perform "counter-top" level activities (make a sandwich, vicenta with a project, etc.). 3. No bending or lifting of more than 10 pounds or back twisting of any nature (roll like a log when turning in bed). 4. You may ride in a car for 20-30 minutes at a time. No driving until after your first visit with your doctor. 5. Frequent changes of position and restricting sitting to 30 minutes at a time will help limit the amount of back spasms and stiffness you may experience. 6. You may discontinue the use of ambulatory aids (cane, crutches, etc.) once your strength and confidence allow. 7. You may horse racing manager the shower and let water strike your incision when you arrive home at least once daily. Do not take a tub bath, sit in a hot tub or go into a swimming pool until after your first recheck in the office. 8. You may resume previous diet. SPECIAL CARE INSTRUCTIONS: VERY IMPORTANT TO READ AND REVIEW A. Your surgical incision has been closed with a cosmetic suture under the skin that will dissolve in about 6 weeks. In 14 days, you can use a pair of clean scissors and cut the suture that is left outside of the skin at the ends of your incision. 1. The small skin tapes can be removed 7 days after surgery if they have not fallen off by that point. 2. You may keep the wound open to air as much as possible to promote healing after post-op day number 5 unless told otherwise by your doctor. 3. If you think the wound looks like it is becoming infected (redness or worsening drainage) and/or you are experiencing fever, chill or worsening back pain and muscle spasms, contact the office so that we may evaluate you as soon as possible. B. Complications are uncommon, but please contact us if you have any signs or symptoms of: 1. wound infection (fever higher than 102.5 degrees F, redness, separation of wound, drainage, or increasing pain from the incision) 2. blood clots in legs (pain, swelling, redness and warmth in legs) 3. urinary tract infection (fever higher than 102.5 degrees F, burning upon urination or increased frequency of urination) 4. nerve problems (inability to walk on your toes or heels, numbness, loss of bowel or bladder control) 5. any other symptoms that concern you C. Please call the office at if you have any concerns or questions about your operation or recovery. D. No smoking! Smoking drastically decreases the chance of a solid fusion. E. Do not take any anti-inflammatory medications (Indocin, Advil, Motrin, Aspirin, Naprosyn, etc.) as these may inhibit the chance of a solid fusion. Tylenol is okay to take for pain. MANAGING PAIN AFTER SPINAL SURGERY 1. Narcotic medication is intended for short-term use and will be provided for surgical pain. Surgical pain usually lasts for a period of 4-6 weeks. Narcotic medication includes Percocet, Vicodin, Darvocet, Tylenol #3 or Lortab. 2. Longer-term pain is more appropriately treated with non-narcotic medication such as Tylenol ES. 3. Muscle spasm is not appropriately treated with narcotics. Muscle relaxers such as Soma, Flexeril or Skelaxin can be used along with Tylenol ES. 4. Remember that we all live with some "aches and pains". This is not unusual or uncommon after an injury or as we get older. a. Back pain is expected and may include muscle spasms for 4 to 6 weeks after surgery. The pain should gradually improve. If the pain worsens for no apparent reason, please contact the office. b. Intermittent leg pain may also be experienced and should not be concerned about unless it worsens for no apparent reason. If so, please contact the office. 5. We will provide appropriate medication within the normal guidelines of their prescribed use. We will also be very cautious and aware of potential abuse and extended duration of patients' medication needs. a. Pain medications are for your comfort and to assist with sleep and rest so that the tissue can heal. They are not provided in order to return to normal activity and should not be used through the day. To do so or worsening pain at night can result from ongoing tissue damage and development of tolerance to the prescribed medicine. 6. Please allow 2-3 days to process refills. Prescriptions will not be mailed but must be picked up at the office. FOLLOW UP VISIT: Keep your scheduled follow-up appointment. Any questions, please call the office at . Pending Studies at Discharge: No Stand-Alone Forms: [email or web address], Smoking Cessation Medications and AR Order Prescriptions: New tramadol 50 mg tablet 50 mg PO Q6H PRN (Reason: pain, moderate) Qty: 30 0RF oxycodone 5 mg tablet 5 mg PO Q6H PRN (Reason: pain) Qty: 30 0RF Continued calcium 600 mg Capsule 600 mg PO DAILY omeprazole 20 mg Capsule,Delayed Release(Dr/Ec) 20 mg PO BID montelukast 10 mg Tablet 10 mg PO QAM fluticasone propionate [Flonase Allergy Relief] 50 mcg/actuation Geronimo,Suspension 1 spray INTRANASAL DAILY Rx Instructions: administer into each nostril Qvar 40 mcg/actuation Aerosol 40 mcg INHALATION DAILY naproxen [Naprosyn] 500 mg Tablet 500 mg PO BID valsartan-hydrochlorothiazide 160-25 mg Tablet 1 tab PO QAM rosuvastatin 10 mg Tablet 10 mg PO QAM quetiapine [Seroquel] 50 mg Tablet 50 mg PO HS levocetirizine [Xyzal] 5 mg Tablet 5 mg PO QAM PreserVision AREDS 2,148 mcg-113 mg-45 mg-17.4mg Tablet 1 tab PO DAILY Rx Instructions: administer with AM and PM meals Women's Multivitamin 18 mg iron-400 mcg-500 mg Tablet 1 tab PO DAILY Ozempic 1 mg/dose (4 mg/3 mL) Pen Injector 1 mg SUBCUT WK Patient Comments: "I haven't taken it for about two months, I am supposed to get another dose but I don't know when" albuterol 90 mcg/actuation Aerosol 90 mcg INHALATION DAILY PRN (Reason: Shortness of Breath - Wheezing) cholecalciferol (vitamin D3) [Vitamin D3] 50 mcg (2,000 unit) Capsule 100 mcg PO DAILY diphenhydramine-acetaminophen [Tylenol PM Extra Strength] 25-500 mg Tablet 1 tab PO HS Discharge Orders: Discharge Order (Routine); Ordered 07/08/24 Ordered By: Nasim Elizabeth Admission Data Admit Date/Time: 07/05/24 12:52 Attending Provider: Nasim Elizabeth Admit Provider: Nasim Elizabeth Primary Care Provider: Gretchen Heath Other Providers: Chanda Tineo
--- NOTE | 2024-07-08 13:00 | Hospitalist Progress Note ---
Date of Service July 08, 2024 Assessment & Plan (1) Status post lumbar spine surgery for decompression of spinal cord: (2) Spinal stenosis: (3) Sleep apnea: (4) Hypertension: Plan Jillian is a pleasant 68-year-old female with PMH of diabetes mellitus, BMI 40+, vitamin D deficiency, arthritis, HTN, HLD, GERD, AMARJIT, asthma, and allergic rhinitis. She presented on 07/05 for an L1-L5 decompression and fusion of the spinal cord with Dr. Elizabeth. #Diabetes mellitus Last A1c at 6.5% on 06/10/2024. No current home medications, previously Monjuaro and metformin at this time. continue lantus 8units HS and SSI while inpatient. Not needed to continue at discharge. Defer to PCP if needing to restart Metformin once off steroids. #Anemia-hgb 8.6 after surgery but she was anemic preop as well with borderline microcytosis-recommend outpatient follow up with PCP specifically with GI evaluation if not already done recently #S/p lumbar spine surgery Perioperative antibiotics, pain control, fluids, and DVT PPx per the primary team EBL 950cc - hgb 8.5 post-op - suspect acute blood loss anemia vs dilutional. hgb stable 8.6 Leukocytosis likely reactive from steroids. platelets have recovered. #Hypertension Resume valsartan.okay to resume HCTZ tomorrow/on discharge. Pt takes as a combo pill. #AMARJIT- home CPAP #Insomnia-Continue Seroquel HS Thank you for allowing us to precipitate in the care of this patient, medicine will sign off. please reach out with any new questions or concerns Admission and Anticipated Discharge Date Admission Date: July 05, 2024 Supervising Physician Co-Signing Physician Notes PA Supervision Note: I did not personally see or examine the patient today, but I verified all franks points of ALISSON Hernandez's assessment and plan with the following exceptions/additions: None Subjective patient seen lying in bed. Reports pain in her left hip after working with therapy this morning states that she did not have any left hip pain prior to her surgery. states Dr. Elizabeth thinks is her sciatica Then she may go home today or she may stay another night she is going to be at reevaluated this afternoon by physical therapy Reassured that sugar should improve once she is off the steroids. Recommend she monitor blood sugars periodically at home Review of Systems Review of Systems: All systems reviewed & are unremarkable except as noted in Subjective Physical Exam Physical Exam: General: NAD, VS as above, lying in bed, appears uncomfortable Resp: normal respiratory effort, lungs clear to auscultation CV: RRR, no murmur, Abd: normal bowel sounds, non tender, soft Extremities: Moves all extremities. Neuro: A&O x3, Results & Data Results & Data Vital Signs (Past 12 Hours) Vital Signs Temp Pulse Resp BP Pulse Ox O2 Del Method 07/08/24 07:30 97.7 F 78 16 104/67 93 Room Air Laboratory Results [id number] glucose reviewed PG Care Time/CCT Total # of Minutes Spent Total Time Spent with Patient: Total time spent is greater than 50% in coordination of care (as documented) at patient's floor/unit and/or counseling patient: Coding Level of Care Code 89111 SUB INP/OBS CARE 2/35MIN Diagnoses Status post lumbar spine surgery for decompression of spinal cord Z98.890 Spinal stenosis M48.00 Sleep apnea G47.30 Hypertension I10
[2024-07-09] MEDS: dexAMETHasone 8 MG in SYRINGE 0 ML IV STA (06:24)
[2024-07-09 08:11] VITALS: BP 112/65; PULSE 81; TEMP 97.9; O2SAT 94
[2024-07-09] MEDS: hydroCHLOROthiazide 25 MG TAB PO SCH (09:11)
== END 2024-07-09 13:55 | disposition home or self-care (01) | DRG 427 ==
LOC: ASU 07:46 → 3W 12:52